=== PATIENT | female | born 1935 | race Caucasian/White ===

== ENCOUNTER 2018-07-30 02:42 | Observation (INO) | payer MEDICARE, MEDICAID ==
[~2018-07-30] VITALS: Ht 165.1 cm; Wt 37.6 kg
[2018-07-30] MEDS ORDERED: PLEASE ENTER ALLERGIES MC SCH (04:00)
[2018-07-30] MEDS ORDERED: morphine SULFATE ORAL.CONC 20 MG/ML SL PRN ×2 (04:00→05:30)
[2018-07-30] MEDS ORDERED: ONDANSETRON ODT 4 MG PO ONE (04:00)
[2018-07-30 04:26] VITALS: BP 129/67
[2018-07-30] MEDS ORDERED: LORazepam INTENSOL 2 MG/ML SL PRN (05:30)
[2018-07-30] MEDS ORDERED: SCOPOLAMINE PATCH, 1.5MG PATCH.TD72 TD SCH (05:30)
[2018-07-30] MEDS ORDERED: SCOPOLAMINE PATCH, 1.5MG PATCH.TD72 TD PRN (06:30)
== END 2018-07-30 16:25 ==
LOC: ED 03:35 → INTOOBSV 03:40 → EDIP 03:40 → ED 03:48 → 3NW 04:09
PROVIDERS: ADMIT Internal Medicine; ATTEND Internal Medicine
DX: F02.80 Dementia in other diseases classified elsewhere, unspecified severity, without behavioral disturbance, psychotic disturbance, mood disturbance, and anxiety (principal); G30.9 Alzheimer's disease, unspecified; J44.9 Chronic obstructive pulmonary disease, unspecified; Z51.5 Encounter for palliative care; Z87.891 Personal history of nicotine dependence; Z66 Do not resuscitate
CPT/HCPCS: 96374; 99284; G0378; J2270